=== PATIENT | male | born 1985 | race Two or more races ===

== ENCOUNTER 2021-01-21 17:47 | Emergency (ER) | payer MEDICAID ==
[~2021-01-21] VITALS: Ht 167.6 cm; Wt 113.4 kg
[2021-01-21 19:41] VITALS: BP 156/100
[2021-01-21] MEDS ORDERED: TETANUS-DIPTH-ACEL PERTUSSIS 0.5ML SYR Tdap IM ONE (20:15)
[2021-01-21] MEDS ORDERED: LIDOCAINE 1% HCL (LOCAL ANESTH.) INJ 20ML MDV IJ ONE (21:15)
== END 2021-01-21 21:54 | disposition home or self-care (01) ==
LOC: ER 17:47
DX: S00.85XA Superficial foreign body of other part of head, initial encounter (principal); E66.9 Obesity, unspecified; Z68.41 Body mass index [BMI] 40.0-44.9, adult; W45.8XXA Other foreign body or object entering through skin, initial encounter; Y93.89 Activity, other specified; Y92.89 Other specified places as the place of occurrence of the external cause; Y99.8 Other external cause status
CPT/HCPCS: 10120; 70140; 90471; 90715; 99284; J2001